=== PATIENT | female | born 1935 | race Caucasian/White ===

== ENCOUNTER → 2016-09-03 | Outpatient (CLI) | payer MEDICARE, MEDICAID ==
[~2016-09-03] MED LIST: AMLO5TAB4 PO; ARIP5TAB10 PO; CHOL200026; CITA40TA14 PO; DEXT1DRO7 BOTH EYES; DULO30CA52 PO; HYDR-4246 PO; LISI2.5T2 PO; LOPE2CAP PO; LORA-315 PO; MAGN400O4; METF-200 PO; NYST15CR TOP; POLY119P3 PO; SELE118S3; SYSTANE
== END ==
LOC: LABNH.AP 02:33
PROVIDERS: ATTEND Family Medicine
DX: E11.9 Type 2 diabetes mellitus without complications (principal)
CPT/HCPCS: 36415; 83036; P9604

== ENCOUNTER → 2016-10-13 | Outpatient (CLI) | payer MEDICARE, MEDICAID ==
[2016-10-13 17:35] LABS: BLOOD, URINE TRACE-LYSED (NEGATIVE); COLOR,URINE YELLOW (YELLOW); LEUKOCYTE ESTERASE ,URINE NEGATIVE (NEGATIVE); NITRITE,URINE NEGATIVE (NEGATIVE); UROBILINOGEN,URINE 0.2 EU/DL (NORMAL)
== END ==
LOC: LABN.AP 17:27
PROVIDERS: ATTEND Registered Nurse Psychiatric/Mental Health
DX: R41.82 Altered mental status, unspecified (principal)
CPT/HCPCS: 81003

== ENCOUNTER 2017-07-12 16:29 | Inpatient (IN) ==
--- NOTE | 2017-07-12 16:43 | Emergency Department Report ---
Fever HPI - General Chief Complaint: Fever Stated Complaint: feeling hot Time Seen by Provider: 07/12/17 16:43 Source: patient Limitations: no limitations - History of Present Illness HPI Narrative: 82 YO F sent to ED from [place] for fever of 102.8, RLQ pain, tachycardia and tachypnea. Patient says she feels "lousy" and has had a cough for a for three days. Cough is non productive. Patient denies chills, SOA, nausea, vomiting, diarrhea, constipation, dysuria. Patient point to her right groin when asked where her pain is at. Has had same type of abdominal pain before. Cannot remember when her last BM was. MD complaint: fever - Related Data Home Medications Medication Instructions Recorded Confirmed Amlodipine Besylate [Norvasc] 5 mg PO DAILY #0 06/22/13 07/12/17 Duloxetine HCl [Cymbalta] 60 mg PO DAILY 11/02/16 07/12/17 Furosemide [Lasix] 20 mg PO MOTH@0900 11/02/16 07/12/17 Lurasidone HCl [Latuda] 80 mg PO PM 11/02/16 07/12/17 Trolamine Salicylate 10% Cream 1 applicatio TOP QID PRN 11/02/16 07/12/17 [Aspercreme] Acetaminophen 650 mg PO Q4H PRN 07/12/17 07/12/17 Aspirin [Aspirin EC] 81 mg PO DAILY 07/12/17 07/12/17 Cholecalciferol (Vitamin D3) 2,000 unit PO DAILY 07/12/17 07/12/17 [Vitamin D3] Duloxetine [Cymbalta] 30 mg PO DAILY 07/12/17 07/12/17 Guaifenesin Oral Liq [Robitussin] 200 mg PO Q4H PRN 07/12/17 07/12/17 LORazepam [Ativan] 0.25 mg PO PM PRN 07/12/17 07/12/17 Loperamide HCl [Imodium A-D] 2 mg PO QID PRN 07/12/17 07/12/17 Mag Hydrox/Aluminum Hyd/Simeth 30 ml PO Q4H PRN 07/12/17 07/12/17 [Alum-Mag Hydroxide-Simeth Liq] Magnesium Hydroxide [Milk of 30 ml PO DAILY PRN 07/12/17 07/12/17 Magnesia] Metformin [Glucophage] 500 mg PO WB 07/12/17 07/12/17 Polyvinyl Alcohol [Artificial 1 drop EACH EYE QID PRN 07/12/17 07/12/17 Tears] Previous Rx's Medication Instructions Recorded Amoxicillin/Potassium Clav 1 each PO BID #10 tab 07/14/17 [Augmentin 875-125 Tablet] LORazepam [Ativan] 0.5 mg PO Q5H PRN #30 tab 07/14/17 Allergies Allergy/AdvReac Type Severity Reaction Status Date / Time vancomycin AdvReac Unknown CAN BE Verified 07/12/17 16:45 CONTROLLED BY BENADRYL Review of Systems All systems: reviewed and negative except as stated Constitutional: Reports: as per HPI, fever Respiratory: Reports: as per HPI, cough Gastrointestinal: Reports: as per HPI, abdominal pain PFSH Patient Stated Medical History Dementia Yes Peripheral Neuropathy Yes Coronary Artery Disease Yes Hypertension Yes Diabetes Mellitus Type 2 Yes Gastroesophageal Reflux Yes Disease Hx Renal Disease Yes: CHRONIC KIDNEY DISEASE Osteoarthritis Yes Depression Yes Other Behavioral Health Yes: PYSCHOSIS Surgical History: Colonoscopy. Cholecystectomy. Hysterectomy Family History: noncontributory - Social History Smoking status: Former smoker Physical Exam - General General appearance: alert - Normal Exams: Head:: Normocephalic without trauma Eyes:: Pupils are PERRLA w/ EOMI, No scleral icterus, irritation (family) ENMT:: No facial trauma, nasal exudates, pharyngeal erythema, or exudates are noted Neck:: Full range of motion, without adenopathy (or drinking a lot of quick action ear but they're done with this 70) Neurological:: Patient is alert, and oriented, cranial nerves, motor/sensory/ cerebellar, exams w/o gross deficits, to observation Psychiatric:: Patient exhibits, appropriate attention, emotion and affect - Eye Eye exam: Present: EOMI - Neck Neck exam: Present: trachea midline - Respiratory Respiratory exam: Present: crackles (bibasilar fine crackles ). Absent: accessory muscle use, prolonged expiratory phase - Cardiovascular Cardiovascular exam: Present: normal rhythm (98 bpm patient) - Abdominal Exam Abdominal exam: Present: soft. Absent: distention, tenderness Course - Consultations Consultation #1: I discussed patient HPI, PMH, labs, VS, CXR, exam findings and treatment in ED with Dr. Mcbride. Dr. Mcbride will admit. Vital Signs Temperature 99.6 F 07/12/17 16:36 Pulse Rate 100 07/12/17 16:36 Respiratory Rate 26 H 07/12/17 16:36 Blood Pressure 131/67 07/12/17 16:36 Pulse Oximetry 97 07/12/17 16:36 Temperature 98.8 F 07/14/17 08:00 Pulse Rate 93 07/14/17 08:00 Respiratory Rate 18 07/14/17 08:00 Blood Pressure 124/56 07/14/17 08:00 Pulse Oximetry 96 07/14/17 08:00 Fever - MDM Narrative Medical decision making narrative: Patient says abdominal is better after arrival and declines anything for pain at this time. Says she has had this same pain before. WBC 12.1 BUN 26 Creatinine 1.3 Glucose 243 Lactate 2.1 Procalcitonin 1.14 VS improved after 1 liter of NS CXR indicated RML infiltrate Patient admitted for sepsis and HCAP. - Differential Diagnosis Likely: fever of unknown origin, gastroenteritis, viral infection, sepsis, influenza - Medical Records Attestation: I reviewed the patient's medical records. - Lab Data Attestation: I reviewed the patient's lab results. Result diagrams: 07/14/17 05:29 07/14/17 05:29 Lab Results 07/12/17 07/12/17 07/12/17 Range/Units 16:54 16:57 16:57 WBC 12.2 H (4.5-11.0) T/MM3 RBC 4.06 (4.00-5.20) M/MM3 Hgb 11.9 L (12-16) GM/DL Hct 37.6 (36-46) % MCV 92.6 (80-100) UM3 MCH 29.3 (26-34) UUG MCHC 31.6 (31-37) GM/DL RDW Std Deviation 45.2 (36.9-50.2) FL Plt Count 132 (130-400) T/MM3 MPV 10.1 (9.4-12.4) UM3 Immature Gran % (Auto) Not performed Neut % (Auto) Not performed Lymph % (Auto) Not performed [place] % (Auto) Not performed Eos % (Auto) Not performed Baso % (Auto) Not performed Neut # (Auto) Not performed Lymph # (Auto) Not performed [place] # (Auto) Not performed Eos # (Auto) Not performed Baso # (Auto) Not performed Abs Immat Gran (auto) Not performed Neutrophils % (Manual) 86.0 H (33-66) % Band Neutrophils % 3.0 (0-6) % Lymphocytes % (Manual) 5.0 L (23-45) % Monocytes % (Manual) 4.0 (0-9.0) % Basophils % (Manual) 2.0 (0-2) % Neutrophils # (Manual) 10.5 H (1.8-7.7) T/MM3 Band Neutrophils # 0.4 T/MM3 Lymphocytes # (Manual) 0.6 L (1-4.8) T/MM3 Monocytes # (Manual) 0.5 (0-0.8) T/MM3 Basophils # (Manual) 0.2 (0-0.2) T/MM3 RBC Morph Comment Normal Turbidity < 20 (0-20) Sodium 141 (134-144) MEQ/L Potassium 3.7 (3.6-5) MEQ/L Chloride 102 (98-107) MEQ/L Carbon Dioxide 25 (22-30) MEQ/L Anion Gap 14 (5-15) MEQ/L BUN 26.0 H (7-17) MG/DL Creatinine 1.3 H (0.7-1.2) MG/DL GFR Calculation 39 BUN/Creatinine Ratio 20 (6-26) RATIO Glucose 243 H (65-110) MG/DL Calculated Osmolality 284 H (261-280) MOSM/KG Calcium 9.8 (8.4-10.2) MG/DL Total Bilirubin 0.50 (0.20-1.30) MG/DL Icterus Index < 2 (0-7) AST 22 (14-36) U/L ALT 24 (9-52) U/L Alkaline Phosphatase 77 (38-126) U/L Total Protein 7.3 (6.3-8.2) G/DL Albumin 3.9 (3.5-5.0) G/DL Globulin 3.4 (2.4-3.6) G/DL Albumin/Globulin Ratio 1.1 (1.1-2.2) RATIO Lipase 29 (23-300) U/L Plasma Lactate 2.1 (0.6-2.2) MMOL/L Procalcitonin NG/ML Specimen Hemolysis < 15 (0-25) Influenza Type A (PCR) Negative (Negative) Influenza Type B (PCR) Negative (Negative) 07/12/17 Range/Units 16:57 WBC (4.5-11.0) T/MM3 RBC (4.00-5.20) M/MM3 Hgb (12-16) GM/DL Hct (36-46) % MCV (80-100) UM3 MCH (26-34) UUG MCHC (31-37) GM/DL RDW Std Deviation (36.9-50.2) FL Plt Count (130-400) T/MM3 MPV (9.4-12.4) UM3 Immature Gran % (Auto) Neut % (Auto) Lymph % (Auto) [place] % (Auto) Eos % (Auto) Baso % (Auto) Neut # (Auto) Lymph # (Auto) [place] # (Auto) Eos # (Auto) Baso # (Auto) Abs Immat Gran (auto) Neutrophils % (Manual) (33-66) % Band Neutrophils % (0-6) % Lymphocytes % (Manual) (23-45) % Monocytes % (Manual) (0-9.0) % Basophils % (Manual) (0-2) % Neutrophils # (Manual) (1.8-7.7) T/MM3 Band Neutrophils # T/MM3 Lymphocytes # (Manual) (1-4.8) T/MM3 Monocytes # (Manual) (0-0.8) T/MM3 Basophils # (Manual) (0-0.2) T/MM3 RBC Morph Comment Turbidity (0-20) Sodium (134-144) MEQ/L Potassium (3.6-5) MEQ/L Chloride (98-107) MEQ/L Carbon Dioxide (22-30) MEQ/L Anion Gap (5-15) MEQ/L BUN (7-17) MG/DL Creatinine (0.7-1.2) MG/DL GFR Calculation BUN/Creatinine Ratio (6-26) RATIO Glucose (65-110) MG/DL Calculated Osmolality (261-280) MOSM/KG Calcium (8.4-10.2) MG/DL Total Bilirubin (0.20-1.30) MG/DL Icterus Index (0-7) AST (14-36) U/L ALT (9-52) U/L Alkaline Phosphatase (38-126) U/L Total Protein (6.3-8.2) G/DL Albumin (3.5-5.0) G/DL Globulin (2.4-3.6) G/DL Albumin/Globulin Ratio (1.1-2.2) RATIO Lipase (23-300) U/L Plasma Lactate (0.6-2.2) MMOL/L Procalcitonin 1.14 NG/ML Specimen Hemolysis (0-25) Influenza Type A (PCR) (Negative) Influenza Type B (PCR) (Negative) - Radiology Data Attestation: I reviewed the patient's radiology results. CXR: Right middle lobe pneumonia (Dr. Gunter) Disposition Clinical Impression: HCAP (healthcare-associated pneumonia) Sepsis Qualifiers: Sepsis type: sepsis due to unspecified organism Qualified Code(s): A41.9 - Sepsis, unspecified organism Disposition: 02 To [facility] [place] Acute Care Condition: Improved - Seen By: teresalevel
[2017-07-12] MEDS ORDERED: NS 1,000 ML IV ONE (16:44)
[2017-07-12] MEDS ORDERED: SALINE FLUSH 10ml SYRINGE IVF PRN (16:44)
--- OUTSIDE RECORDS SUMMARY | 2017-07-12 16:51 | External Medical Summary | Continuity of Care Document ---
:1935 Author Organization [facility] Allergies There is no data. Medications There is no data. Problems There is no data. Procedures There is no data. Results There is no data. Encounters ACCT No. Visit Discharge Status Pt. Type Provider Facility Loc./Unit Complaint Date/Time [id number] 06/30/2013 06/30/2013 CLS Outpatient 11:19:00 23:59:59 [id number] 06/17/2013 06/17/2013 CLS Outpatient 13:11:00 23:59:59 [id number] 05/02/2013 05/02/2013 CLS Outpatient 10:56:00 23:59:59 [id number] 04/25/2013 04/25/2013 CLS Outpatient 14:54:00 23:59:59
[2017-07-12] MEDS ORDERED: CEFEPIME 1 GM in NS 100 ML IV ONE (17:58)
--- NOTE | 2017-07-12 19:45 | History & Physical Report ---
History of Present Illness Date: 07/12/17 Chief complaint: fever HPI: Mrs. Schaefer is an 82-year-old female who reports feeling bad for 3 days. She reports that she's felt hot and cold through that time. And had phlegm in her throat that she can't cough up. She describes minimal cough but has felt short of breath. Interestingly she advised the emergency room that she has been short of breath and that cough was nonproductive. She reports that she's been really sick and that people haven't listened to her. She reports sore throat and nasal congestion in conjunction with nausea but no emesis. Her appetite is stable and she denied dysuria or hematuria. She describes constipation in conjunction with chronic right lower quadrant abdominal pain which is no different than usual. Patient had a temperature of 102.8 at [facility] today and was referred for further evaluation. She was tachycardic and tachypnea on arrival in the emergency room and chest x-ray demonstrated right middle lobe infiltrate. Initial lactic acid was 2.1. Antibiotics were initiated and she is admitted now for further management. Review of Systems All systems PM: 10-point ROS was reviewed, no additional remarkable complaints except (right arm weakness, chronic constipation, and patient reports her mood is bad and that she is frustrated but not depressed. Patient reports she is generally nonambulatory and requires assistance to get in and out of bed. Remainder of review of systems was negative or as per history of present illness.) Past Medical History Type 2 diabetes mellitus Hypertension Hyperlipidemia Peripheral neuropathy CKD, stage III Depression/anxiety Dementia DJD Unspecified mental disorder with psychosis Vitamin D deficiency History uterine cancer (per patient history; son thinks she may have had lung cancer) Surgical History: Colonoscopy. Cholecystectomy. Hysterectomy. Carpal tunnel syndrome release 2. Bilateral cataract extractions. Right TKA Family History Updates: Both parents had diabetes, hyperlipidemia, and coronary artery disease; both are . Patient reports her mother had stomach cancer. - Social History Smoking status: Former smoker Substance use type: does not use Alcohol intake frequency: does not drink Housing: senior care ([facility]) Social history: PCP-Dr. Silver DPOA for healthcare-son Aguila Martino CODE STATUS patient and son requests to be full code; signed DO NOT RESUSCITATE and transfer records from [place] Medications Home Medications Medication Instructions Recorded Confirmed Type Amlodipine Besylate [Norvasc] 5 mg PO DAILY #0 06/22/13 07/12/17 History Citalopram Hydrobromide [Celexa] 20 mg PO DAILY #0 tab 10/05/13 07/12/17 History Duloxetine HCl [Cymbalta] 60 mg PO DAILY 11/02/16 07/12/17 History Furosemide [Lasix] 20 mg PO MOTH@0900 11/02/16 07/12/17 History Lurasidone HCl [Latuda] 80 mg PO PM 11/02/16 07/12/17 History Trolamine Salicylate 10% Cream 1 applicatio TOP QID PRN 11/02/16 07/12/17 History [Aspercreme] Acetaminophen 650 mg PO Q4H PRN 07/12/17 07/12/17 History Aspirin [Aspirin EC] 81 mg PO DAILY 07/12/17 07/12/17 History Cholecalciferol (Vitamin D3) 2,000 unit PO DAILY 07/12/17 07/12/17 History [Vitamin D3] Duloxetine [Cymbalta] 30 mg PO DAILY 07/12/17 07/12/17 History Guaifenesin Oral Liq [Robitussin] 200 mg PO Q4H PRN 07/12/17 07/12/17 History LORazepam [Ativan] 0.25 mg PO PM PRN 07/12/17 07/12/17 History LORazepam [Ativan] 0.5 mg PO Q5H PRN 07/12/17 07/12/17 History Loperamide HCl [Imodium A-D] 2 mg PO QID PRN 07/12/17 07/12/17 History Mag Hydrox/Aluminum Hyd/Simeth 30 ml PO Q4H PRN 07/12/17 07/12/17 History [Alum-Mag Hydroxide-Simeth Liq] Magnesium Hydroxide [Milk of 30 ml PO DAILY PRN 07/12/17 07/12/17 History Magnesia] Metformin [Glucophage] 500 mg PO WB 07/12/17 07/12/17 History Polyvinyl Alcohol [Artificial 1 drop EACH EYE QID PRN 07/12/17 07/12/17 History Tears] Allergies Allergy/AdvReac Type Severity Reaction Status Date / Time vancomycin AdvReac Unknown CAN BE Verified 07/12/17 16:45 CONTROLLED BY BENADRYL Exam Vital Signs: Temperature 99.6 F 07/12/17 16:36 Pulse Rate 88 07/12/17 18:00 Respiratory Rate 19 07/12/17 18:00 Blood Pressure 167/74 H 07/12/17 18:00 Pulse Oximetry 97-RA 07/12/17 18:00 EXAM: General-elderly female, shaking, appears mildly uncomfortable HEENT-PERRL, EOMI without nystagmus, conjugate gaze, conjunctiva clear, sclera anicteric, facial structures symmetric, oropharynx clear with dry membranes, neck supple and without adenopathy Lungs-respirations nonlabored, very poor air flow, anterior breath sounds clear Cardiac-regular rhythm, S1-S2, no murmur appreciated Abd-obese, soft, nontender, diminished bowel sounds Ext-without edema Skin-generalized pallor, no wounds or rashes appreciated Neuro-cranial nerves 3-12 grossly intact, coarse tremor of the upper extremities bilaterally (son reports been present for years), hull grinder were weak bilaterally and plantar flexion/dorsiflexion are weak-distal strength graded 3+/ 5, minimal movement of proximal extremities symmetrically and I don't appreciate any significant difference between the right upper and left upper extremities. Sensation intact to light touch 4 extremities. Psych-anxious, flat affect Height/Weight/BMI: Weight 89.1 kg Results - Labs CBC & Chem 7: 07/12/17 16:57 07/12/17 16:57 Labs: S86 B3 L5 M4 Baso2 Liver enzymes within normal Lipase 29 Lactic acid 2.1, procalcitonin 1.14 Influenza A, B-negative - Imaging and Cardiology Chest x-ray Status: image reviewed by me (probable right middle lobe infiltrate) Assessment and Plan (1) Sepsis Current visit: Yes Status: Acute (2) Pneumonia Current visit: Yes Status: Acute Assessment and Plan: Impression: Severe sepsis due to pneumonia Possible aspiration pneumonia/pneumonitis Diabetes mellitus with neuropathy/nephropathy; no not on insulin therapy-A1C 5.9 06/10/17 Hypertension CKD, stage III Dementia Hyperlipidemia Depression/anxiety Tremor Chronic constipation Plan: Mrs. Schaefer is admitted with severe sepsis in conjunction with probable right middle lobe infiltrate. She tested negative for influenza in the emergency room. History is difficult to ascertain as different histories were provided to the emergency room and when she spoke with me that she clearly was febrile and has leukocytosis. She describes feeling hot and cold and may or may not have a cough and may or may not have sputum production. Breathing treatments will be initiated and sputum sent for culture. Full respiratory viral panel will be obtained to look for other respiratory viruses. Patient will be started on ceftriaxone and azithromycin for community-acquired pneumonia receiving initial dose of cefepime in the emergency room. I am concerned that this is a aspiration pneumonia and speech therapy will be consulted. Have asked nursing to utilize nectar thickened liquids at present pending speech eval. IV fluids will be initiated as she appears to be somewhat dry although creatinine is at baseline. Significant tremor-reported to be old by her son. Bowel regimen initiated for chronic constipation. Metformin on hold, corrective scale insulin, carb controlled diet. Full code order written at present given DPOA's request that patients current statement that all interventions needed be initiated be honored. DVT Prophylaxis: SCD's Resuscitation Status: Full Code - Physician Narrative Narrative: Date: 07/12/17 Time: 1938 Sepsis Assessment - Evaluation SIRS Criteria: temperature > 100.9, pulse > 90 beats/minute, WBC > 12,000, RR > 20 Severe Sepsis: lactate > 2.0 mg/dL Hospital Course Summary Disclaimer: The visit summary below is not to be considered part of the above Progress Note.
[2017-07-12 19:57] VITALS: BMI 35.9
[2017-07-12] MEDS ORDERED: METOCLOPRAMIDE 10mg/2ml INJECTION IVP PRN (19:59)
[2017-07-12] MEDS ORDERED: GUAIFENESIN 100 MG/5 ML PO PRN (20:01)
[2017-07-12] MEDS ORDERED: REFRESH CLASSIC Eye Drops 0.4ml EACH EYE PRN (20:01)
[2017-07-12] MEDS ORDERED: LORazepam 0.5 MG TABLET PO PRN ×2 (20:01)
[2017-07-12] MEDS ORDERED: INSULIN ASPART 100unit/ml INJECTION SQ PRN (20:06)
[2017-07-12] MEDS ORDERED: ALBUTEROL/IPRATROPIUM 2.5mg-0.5mg/3ml NEB AEROSOL PRN (20:06)
[2017-07-12] MEDS: NS 1,000 ML IV SCH (21:18)
[2017-07-12] MEDS: CEFTRIAXONE 1 G in NS 100 ML IV SCH ×2 (21:19→21:58)
[2017-07-12] MEDS: SENNA + DOCUSATE TABLET PO SCH (21:19)
--- NOTE | 2017-07-12 21:55 | XRay Report ---
INDICATION: fever, cough, abdominal pain PROCEDURE: CHEST 2-VIEWS UPRIGHT (PA & LAT) Encounter: Initial COMPARISON: November 02, 2016 FINDINGS: Possible faint airspace opacity the right middle lobe. The remaining lung acevedo are stable and clear. No pleural effusion or pneumothorax. Heart size and mediastinal contours are stable. Pulmonary vascularity is normal. Scoliosis. Impression: Possible right middle lobe infiltrate. .
[2017-07-12] MEDS: ACETAMINOPHEN 325 MG TABLET PO PRN (22:02)
[2017-07-12] MEDS ORDERED: FALL RISK - PHARMACY CONSULT XX ONE (22:15)
[2017-07-12] MEDS: AZITHROMYCIN IV 500 MG in NS 250ml 250 ML IV SCH (22:47)
[2017-07-13] MEDS: ACETAMINOPHEN 325 MG TABLET PO PRN (05:27)
[2017-07-13] MEDS: DULOXETINE 30 MG CAPSULE PO SCH (09:11)
[2017-07-13] MEDS: ASPIRIN *EC* 81 MG TABLET PO SCH (09:11)
[2017-07-13] MEDS: AMLODIPINE 5 MG TABLET PO SCH (09:11)
[2017-07-13] MEDS: DULOXETINE 60 MG CAPSULE PO SCH (09:11)
[2017-07-13] MEDS: CEFTRIAXONE 1 G in NS 50 ML IV SCH (09:12)
[2017-07-13] MEDS: SENNA + DOCUSATE TABLET PO SCH ×2 (09:12→20:23)
[2017-07-13] MEDS: POLYETHYL GLYCOL 3350 17gm PACKET PO SCH (09:12)
[2017-07-13] MEDS: ALBUTEROL/IPRATROPIUM 2.5mg-0.5mg/3ml NEB AEROSOL SCH ×2 (09:36→19:25)
--- NOTE | 2017-07-13 12:06 | Progress Note ---
- Date 07/13/17 Subjective: Patient is seen sitting in bed. She reports she is feeling some better. No CP , n/v. No complaints at the present time. States she is glad to be in the hospital to get better. Ate 100% of breakfast. Objective Vital signs: Temperature 98.5 F 07/13/17 07:42 Pulse Rate 97 07/13/17 07:42 Respiratory Rate 18 07/13/17 09:36 Blood Pressure 147/59 H 07/13/17 07:42 Pulse Oximetry 94 07/13/17 09:36 Height/Weight/BMI: Height 1.57 m Weight 89.9 kg Body Mass Index 35.9 - Constitutional Present: no acute distress, well nourished, well developed - Routine HEENT Exam Head: Present: normocephalic, atraumatic - Routine Respiratory Exam Present: decreased breath sounds, CTA bilaterally. Absent: wheezes - Routine Cardiovascular Exam Present: RRR, no murmur - Routine Abdominal Exam Present: soft, non distended, non tender - Routine Extremities Exam Present: no edema, normal capillary refill - Routine Skin Exam Present: dry, warm - Routine Neurological Exam Present: alert, tremors - Routine Lymphatic Exam Lymphatic: Absent: adenopathy - Routine Psychiatric Exam Present: normal affect, cooperative Results - Labs CBC & Chem 7: 07/12/17 21:51 07/12/17 21:51 Assessment and Plan (1) Sepsis Current visit: Yes Status: Acute (2) Pneumonia Current visit: Yes Status: Acute Assessment and Plan: Impression: Severe sepsis due to pneumonia Possible aspiration pneumonia/pneumonitis Diabetes mellitus with neuropathy/nephropathy; not on insulin therapy-A1C 5.9 Hypertension CKD, stage III Dementia Hyperlipidemia Depression/anxiety Tremor Chronic constipation Plan: Metformin remains on hold. SSI in place. Continues on ceftriaxone, azithromycin and Duonebs. Spiked temp of 102.8 this a.m., but currently afebrile. Not requiring O2. PT/OT consult. DVT Prophylaxis: SCD's Resuscitation Status: Full Code - Physician Narrative Physician: Sandee Arreola MD Narrative: Date: 07/13/17 Time: 2229 I have independently evaluated and examined this patient. I reviewed the chart, the patient's history, and the TOY ASSEMBLER/PA's documented findings as above. We discussed and formulated the assessment and plan as above with additions as below: Mrs. Schaefer reported she was sleepy when seen and that she continues to have a cough without sputum production. She denied dyspnea or recurrent fever although fever was reported overnight by nursing. NAD, oriented to [facility] and 1718 Respirations nonlabored, decreased airflow throughout, breath sounds were clear anteriorly Regular cardiac rhythm, benign abdominal examination Discussed bedside swallow evaluation with speech therapy-patient previously on a regular diet however signs of oropharyngeal dysphasia present and pured diet with nectar thickened liquids recommended initially. Aspiration pneumonia/pneumonitis suspected, continue current antibiotics and reassess. Hypoxia improved. May be able to return to nursing facility on Augmentin tomorrow. Reassessed chest x-ray in a.m. Hospital Course Summary Disclaimer: The visit summary below is not to be considered part of the above Progress Note. Hospital Course: 07/12/17 Mrs. Schaefer is admitted with severe sepsis in conjunction with probable right middle lobe infiltrate. She tested negative for influenza in the emergency room. History is difficult to ascertain as different histories were provided to the emergency room and when she spoke with me that she clearly was febrile and has leukocytosis. She describes feeling hot and cold and may or may not have a cough and may or may not have sputum production. Breathing treatments will be initiated and sputum sent for culture. Full respiratory viral panel will be obtained to look for other respiratory viruses. Patient will be started on ceftriaxone and azithromycin for community-acquired pneumonia receiving initial dose of cefepime in the emergency room. I am concerned that this is a aspiration pneumonia and speech therapy will be consulted. Have asked nursing to utilize nectar thickened liquids at present pending speech eval. IV fluids will be initiated as she appears to be somewhat dry although creatinine is at baseline. Significant tremor-reported to be old by her son. Bowel regimen initiated for chronic constipation. 07/13/17 Metformin on hold, corrective scale insulin, carb controlled diet. Full code order written at present given DPOA's request that patients current statement that all interventions needed be initiated be h Metformin remains on hold. SSI in place. Continues on ceftriaxone, azithromycin and Duonebs. Spiked temp of 102.8 this a.m., but currently afebrile. Not requiring O2. PT/OT consult.
[2017-07-13] MEDS: NS 1,000 ML IV SCH (13:48)
[2017-07-13] MEDS ORDERED: LURASIDONE 40mg TABLET PO SCH (20:00)
[2017-07-13] MEDS: AZITHROMYCIN IV 500 MG in NS 250ml 250 ML IV SCH (20:07)
[2017-07-13 23:31] VITALS: BP 124/56; RESP 18; O2SAT 96
[2017-07-14] MEDS: NS 1,000 ML IV SCH ×2 (04:23→13:08)
[2017-07-14] MEDS: ALBUTEROL/IPRATROPIUM 2.5mg-0.5mg/3ml NEB AEROSOL SCH (07:04)
[2017-07-14 08:33] VITALS: PULSE 93; TEMP 98.8
--- NOTE | 2017-07-14 09:07 | XRay Report ---
Indication: pneumonia, aspiration PROCEDURE: XR chest 1V: Encounter: Initial Comparison: July 12, 2017 Findings: Lungs appear grossly clear. No focal consolidative pneumonia, pleural effusion or pneumothorax. Heart size and mediastinal contours are stable. Pulmonary vascularity is normal. Impression: No focal pneumonia. .
[2017-07-14] MEDS: SENNA + DOCUSATE TABLET PO SCH (10:04)
[2017-07-14] MEDS: AMLODIPINE 5 MG TABLET PO SCH (10:04)
[2017-07-14] MEDS: DULOXETINE 60 MG CAPSULE PO SCH (10:04)
[2017-07-14] MEDS: ASPIRIN *EC* 81 MG TABLET PO SCH (10:04)
[2017-07-14] MEDS: DULOXETINE 30 MG CAPSULE PO SCH (10:04)
[2017-07-14] MEDS: CEFTRIAXONE 1 G in NS 50 ML IV SCH (10:05)
[2017-07-14] MEDS: POLYETHYL GLYCOL 3350 17gm PACKET PO SCH (10:05)
--- NOTE | 2017-07-14 11:37 | Discharge Summary ---
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 Hypertension CKD, stage III Dementia Hyperlipidemia Depression/anxiety Tremor Chronic constipation - Laboratory Labs: Laboratory Tests 07/12/17 07/14/17 16:57 05:29 WBC 12.2 H 7.3 D Laboratory Tests 07/14/17 07/14/17 05:29 06:21 Sodium 142 Potassium 3.6 Chloride 105 Carbon Dioxide 26 Anion Gap 11 BUN 16.0 Creatinine 0.9 D GFR Calculation 60 BUN/Creatinine Ratio 18 Glucose 117 H Glucometer 103 Calculated Osmolality 275 Calcium 8.8 D Laboratory Tests 07/14/17 05:29 WBC 7.3 D RBC 3.72 L Hgb 11.0 L Hct 34.6 L MCV 93.0 MCH 29.6 MCHC 31.8 Plt Count 125 L - Radiology Radiology: Date of Exam: 07/12/17 INDICATION: fever, cough, abdominal pain PROCEDURE: CHEST 2-VIEWS UPRIGHT (PA & LAT) FINDINGS: Possible faint airspace opacity the right middle lobe. The remaining lung acevedo are stable and clear. No pleural effusion or pneumothorax. Heart size and mediastinal contours are stable. Pulmonary vascularity is normal. Scoliosis. Impression: Possible right middle lobe infiltrate. = = = = = = = = = = = = = = = = = = = = = = = = = = = = = = = = = = = = = = = = = = = = = = = Date of Exam: 07/14/17 Indication: pneumonia, aspiration PROCEDURE: XR chest 1V: Findings: Lungs appear grossly clear. No focal consolidative pneumonia, pleural effusion or pneumothorax. Heart size and mediastinal contours are stable. Pulmonary vascularity is normal. Impression: No focal pneumonia. History of Present Illness HPI: Mrs. Silvano is an 82-year-old female who reports feeling bad for 3 days. She reports that she's felt hot and cold through that time. And had phlegm in her throat that she can't cough up. She describes minimal cough but has felt short of breath. Interestingly she advised the emergency room that she has been short of breath and that cough was nonproductive. She reports that she's been really sick and that people haven't listened to her. She reports sore throat and nasal congestion in conjunction with nausea but no emesis. Her appetite is stable and she denied dysuria or hematuria. She describes constipation in conjunction with chronic right lower quadrant abdominal pain which is no different than usual. Patient had a temperature of 102.8 at [facility] today and was referred for further evaluation. She was tachycardic and tachypnea on arrival in the emergency room and chest x-ray demonstrated right middle lobe infiltrate. Initial lactic acid was 2.1. Antibiotics were initiated and she is admitted now for further management. Objective Vital signs: Temperature 98.8 F 07/14/17 08:00 Pulse Rate 93 07/14/17 08:00 Respiratory Rate 18 07/14/17 08:00 Blood Pressure 124/56 07/14/17 08:00 Pulse Oximetry 96 07/14/17 08:00 Height/Weight/BMI: Height 1.57 m Weight 91.5 kg Body Mass Index 35.9 - Constitutional Present: no acute distress, well nourished, well developed - Routine HEENT Exam Head: Present: normocephalic, atraumatic - Routine Respiratory Exam Present: CTA bilaterally. Absent: wheezes - Routine Cardiovascular Exam Present: RRR, no murmur - Routine Abdominal Exam Present: soft, non distended, non tender - Routine Extremities Exam Present: no edema, normal capillary refill - Routine Skin Exam Present: dry, warm - Routine Neurological Exam Present: alert - Routine Lymphatic Exam Lymphatic: Absent: adenopathy - Routine Psychiatric Exam Present: normal affect, cooperative Hospital Course This is a general summary of the patient's hospital course. For more details refer to the complete medical record. Hospital course: 07/12/17 Mrs. Schaefer is admitted with severe sepsis in conjunction with probable right middle lobe infiltrate. She tested negative for influenza in the emergency room. History is difficult to ascertain as different histories were provided to the emergency room and when she spoke with me that she clearly was febrile and has leukocytosis. She describes feeling hot and cold and may or may not have a cough and may or may not have sputum production. Breathing treatments will be initiated and sputum sent for culture. Full respiratory viral panel will be obtained to look for other respiratory viruses. Patient will be started on ceftriaxone and azithromycin for community-acquired pneumonia receiving initial dose of cefepime in the emergency room. I am concerned that this is a aspiration pneumonia and speech therapy will be consulted. Have asked nursing to utilize nectar thickened liquids at present pending speech eval. IV fluids will be initiated as she appears to be somewhat dry although creatinine is at baseline. Significant tremor-reported to be old by her son. Bowel regimen initiated for chronic constipation. 07/13/17 Metformin on hold, corrective scale insulin, carb controlled diet. Full code order written at present given DPOA's request that patients current statement that all interventions needed be initiated be h Metformin remains on hold. SSI in place. Continues on ceftriaxone, azithromycin and Duonebs. Spiked temp of 102.8 this a.m., but currently afebrile. Not requiring O2. PT/OT consult. 07/14/17 DC back to intermediate today. She is doing well. She's been afebrile. Will convert antibiotics to Augmentin 875mg BID for another 5 days. Patient had duloxetine and citalopram both listed as home medications. I discussed this with Dr. Silver who recommends she just continue on duloxetine and will DC citalopram. F-u with PCP in 1 wk. Time spent with patient: discharge greater than 30 minutes Resuscitation Status: Full Code Discharge Plan - Discharge Disposition Discharge Date: 07/14/17 Disposition: 04 To [facility] Home/Facility *Condition: Stable for Transport Reason For Visit (Visit label in EMR): sepsis, pneumonia - Discharge Medications *Discharge Medications: New Amoxicillin/Potassium Clav [Augmentin 875-125 Tablet] 1 each PO BID #10 tab Continue Amlodipine Besylate [Norvasc] 5 mg PO DAILY #0 Trolamine Salicylate 10% Cream [Aspercreme] 1 applicatio TOP QID PRN PRN Reason: Pain Furosemide [Lasix] 20 mg PO MOTH@0900 Lurasidone HCl [Latuda] 80 mg PO PM Acetaminophen 650 mg PO Q4H PRN PRN Reason: Pain Polyvinyl Alcohol [Artificial Tears] 1 drop EACH EYE QID PRN PRN Reason: Dry Eyes Magnesium Hydroxide [Milk of Magnesia] 30 ml PO DAILY PRN PRN Reason: Constipation LORazepam [Ativan] 0.25 mg PO PM PRN PRN Reason: Anxiety Aspirin [Aspirin EC] 81 mg PO DAILY Duloxetine [Cymbalta] 30 mg PO DAILY Metformin [Glucophage] 500 mg PO WB Cholecalciferol (Vitamin D3) [Vitamin D3] 2,000 unit PO DAILY Guaifenesin Oral Liq [Robitussin] 200 mg PO Q4H PRN PRN Reason: Cough Duloxetine HCl [Cymbalta] 60 mg PO DAILY Mag Hydrox/Aluminum Hyd/Simeth [Alum-Mag Hydroxide-Simeth Liq] 30 ml PO Q4H PRN PRN Reason: Indigestion Loperamide HCl [Imodium A-D] 2 mg PO QID PRN PRN Reason: Diarrhea LORazepam [Ativan] 0.5 mg PO Q5H PRN #30 tab PRN Reason: Anxiety Discontinued Citalopram Hydrobromide [Celexa] 20 mg PO DAILY #0 tab - Discharge Packet/Instructions *Diet: Consistent carbohydrate diets 2000 alysha. Ground meats, meds whole, fluid consistency syrup/nectar, food consistency mechanical soft *Activity: as tolerated *Pain Management/Treatment: n/a *Wound Care: n/a *Expected Signs/Symptoms: Continued improvement *Notify Physician if: You spike a high fever or develop shortness of breath *During Business Hours Contact: your nurse at [facility] *After Business Hours Contact: your nurse at [facility] *Pending Lab/Results: No Pending Lab - Referrals/Follow Up *Referrals/Follow Up: Yong Silver MD [Family Provider] - 1 Week - Patient Handouts Patient Handouts: Sepsis (GEN), Pneumonia (GEN) - Dismissal Complete Discharge Instructions are:: Complete Physician Narrative - Narrative Physician: other (Sherlyn Thakkar MD) Attestation Narrative: Date: 07/14/17 Time: [id number] I have independently evaluated and examined this patient. I reviewed the chart, the patient's history, and the TRA[employer]IVER/PA's documented findings as above. We discussed and formulated the assessment and plan as above with additions as below: Patient reports feeling much better today. She feels ready to go home. Her biggest complaint is having thickened liquids. Breathing comfortably with no distress, lungs clear. Plan for discharge today with Augmentin to complete 7 day course of abx for pna.
--- NOTE | 2017-07-14 12:27 | Extended Care Facility Orders ---
<Lynn Karimi - Last Filed: 07/14/17 12:25> Admission Orders Admit to:: [facility] Allergies/Adverse Reactions: Allergies vancomycin Adverse Reaction (Unknown, Verified 07/12/17 16:45) CAN BE CONTROLLED BY BENADRYL Admitting Diagnosis: sepsis, pneumonia Admitting Physician: Sherlyn Thakkar MD Attending Physician: Sherlyn Thakkar MD Code Status: Full Code Anticiapted Length of Stay: greater than 30 days Rehab Potential: fair Rehab Prognosis: fair Diet: 07/13/17 Lunch Consistent Carbohydrate Diet [DIET] Calorie Level: 1999 Fluid Consistency: SYRNEC Food Consistency: MECSOF Comment: ground meats, meds whole May use Facility Protocol or Standing Orders: Yes May have flu vaccine: Yes Evaluations/Treatment: PT, OT - Additional Information In Event of Arrest: Start CPR,call 911,send patient to the ER Resident is Aware of Diagnosis: Yes Referrals: Yong Silver MD [Family Provider] - 1 Week <Sherlyn Thakkar - Last Filed: 07/14/17 12:28> Admission Orders Admitting Diagnosis: sepsis, pneumonia Admitting Physician: Sherlyn Thakkar MD Attending Physician: Sherlyn Thakkar MD Code Status: Full Code Diet: 07/13/17 Lunch Consistent Carbohydrate Diet [DIET] Calorie Level: 1999 Fluid Consistency: SYRNEC Food Consistency: MECSOF Comment: ground meats, meds whole Half-Way Certification: I certify that SNF services are required to be given on an Inpatient basis because of the patients need for custodial care on a continuing basis for the condition(s) for which he/she received inpatient hospital services prior to his/her transfer to the SNF. SNF inpatient care is necessary for the following reasons
== END 2017-07-14 16:38 | DRG 871 ==
LOC: ED 16:29 → SUATTDRO 18:09 → MED 18:09
PROVIDERS: ADMIT Internal Medicine; ATTEND Pediatrics